=== PATIENT | male | born 1960 | race Caucasian/White ===

== ENCOUNTER 2022-11-30 07:52 | Outpatient (OUT) | payer SELFPAY ==
--- NOTE | 2022-11-30 08:02 | ECG_ITS ---
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
[2022-11-30 09:47] LABS: INR 0.99; Partial Thromboplastin Time 27.6 sec (22.3-36.2); Prothrombin Time 10.5 sec (9.0-11.6)
== END 2022-11-30 07:53 | disposition home or self-care (01) ==
LOC: PST 07:57
PROVIDERS: Visit Provider Urology
DX: Z01.810 Encounter for preprocedural cardiovascular examination (principal); Z01.812 Encounter for preprocedural laboratory examination; N20.0 Calculus of kidney
CPT/HCPCS: 85610; 85730; 93005

== ENCOUNTER 2022-12-09 06:35 | Day surgery (SDC) | payer OTHER, SELFPAY ==
[2022-11-30 08:29] VITALS: BP 145/88; PULSE 102; RESP 20; TEMP 36.7; O2SAT 95; BMI 36.2
[2022-12-09] VITALS (10 sets, daily range): BP systolic 124–167; BP diastolic 68–97; PULSE 85–94; RESP 14–19; TEMP 35.9–36.1; O2SAT 94–98; BMI 36.2
--- NOTE | 2022-12-09 06:45 | XR_ITS ---
The [address] [address] Patient Name: CHIKI MARKS MRN: [id number] date: 1960 Sex: M Assigned [facility] Patient [facility] Accession/Order Number: [id number] Exam Date: 12/09/2022 07:00 Report Date: 12/09/2022 08:16 At the request of: MIKE HATCH Procedure: XR abdomen 1V EXAMINATION: XR abdomen 1V HISTORY: kidney stones COMPARISON: No relevant comparison available. FINDINGS: KIDNEY/URETER - RIGHT: No visible renal or ureteral calcifications. KIDNEY/URETER - LEFT: 12 mm stone within inferior pole of kidney. Ureteral stent appears to be in good position. No visible ureteral stones. PELVIS: Pelvic calcifications favor phleboliths. BOWEL: No abnormal dilation or deviation. BONES: No acute abnormality. OTHER: Negative. No abnormal gaseous collections. XR/XR abdomen 1V IMPRESSION: 1. Left nephrolithiasis and left ureteral stent. No comparison studies. Electronically authenticated by: KASSIDY ELLIS Date: 12/09/2022 08:16
[2022-12-09] MEDS: LACTATED RINGER'S SOLUTION 1,000 ML 50 ML IV ×2 (07:18→09:20)
[2022-12-09] MEDS: CEFAZOLIN SODIUM/DEXTROSE,ISO 1 GM/50 ML IV.SOLN IV (07:51)
--- NOTE | 2022-12-09 08:37 | P.URON_ITS ---
Urology Surgery Operative Note Operative Note Procedure Date: 12/09/22 Time Out Performed: yes Pre-op Diagnosis: left nephrolithiasis; status post left stent placement Post-op Diagnosis: same as pre-op Procedures performed: #1. Left ESWL. #2. Cystoscopy. #3. Left stent removal. Anesthesia: General-LMA Primary Surgeon: Arnaud Broussard Complications: none Estimated blood loss (mL): 5 Findings: conglomerate of stones in the lower pole of the left kidney Specimens: none Indications for Procedures: this gentleman had ureteroscopic stone manipulation and stent placement on his left side several weeks ago. He now presents for left ESWL because of left renal calculi. He has signed an informed consent for ESWL and cystoscopy and stent removal after all risks were explained. Some of these risks include bleeding, perinephric hematoma, infection and anesthesia to name a few. Detailed description of Procedure: The patient was brought to the Operating Room and placed on Siemens electromagnetic lithotripsy treatment table in the supine position. SCDs were placed on their lower extremities and turned on and functioning during the entire case. Timeout was done by all parties in the room. We all agreed upon the patient's identification and the planned procedures for this patient. General Anesthesia was then administered via LMA. Treatment head was then brought to the patient's left side. While using flourscopy the stone conglomerate was identified and lined up into the crosshairs. We then began applying shocks at power level II.0 and increased to a maximum power level of 3.5. The stone was quick to start fragmenting. We ended up applying a total of 3000 shocks. We seemed to have satisfactory fragmentation. At the end of the lithotripsy the patient's genitalia were sterilely prepped and draped in the usual fashion. I then passed a flexible cystoscope per urethra and into the bladder. The non-encrusted stent was identified. I then passed a flexible grasping forceps through the scope and grasped the end of the stent. The scope and stent were then removed without difficulty. He was then transferred to a [facility] bed and wheeled to PACU in stable condition.
== END 2022-12-09 10:12 | disposition home or self-care (01) ==
PROVIDERS: Visit Provider Urology
PROC: (CPT 50590; principal; 2022-12-09 08:00)
DX: N20.0 Calculus of kidney (principal); E66.9 Obesity, unspecified; Z68.36 Body mass index [BMI] 36.0-36.9, adult
CPT/HCPCS: 50590; 52310; 36415; 74018; J2704